=== PATIENT | female | born 1995 | race African-American/Black ===

== ENCOUNTER 2024-10-17 12:44 | Emergency (ER) | payer OTHER ==
[2024-10-17 12:47] VITALS: PULSE 113; O2SAT 100
== END 2024-10-17 15:37 | disposition left against medical advice (07) ==
LOC: ER 12:44
DX: O26.851 Spotting complicating pregnancy, first trimester (principal); Z3A.08 8 weeks gestation of pregnancy; Z53.21 Procedure and treatment not carried out due to patient leaving prior to being seen by health care provider